=== PATIENT | female | born 1960 | race Caucasian/White ===

== ENCOUNTER 2017-03-23 10:49 | Emergency (ER) | payer OTHER ==
[~2017-03-23] VITALS: Ht 180.3 cm; Wt 100.0 kg
[2017-03-23] MEDS ORDERED: SING10TA32 PO (11:08)
[2017-03-23] MEDS ORDERED: LEVO50TA5 PO (11:08)
[2017-03-23] MEDS ORDERED: CELE50CA PO (11:08)
[2017-03-23] MEDS ORDERED: MORPHINE 4 MG/ML 1ML SYRINGE IV PRN (11:30)
[2017-03-23] MEDS ORDERED: ONDANSETRON 4MG/2ML VIAL (J2405) IV ONE (11:30)
[2017-03-23] MEDS ORDERED: LIDOCAINE 1% MDV 20ML VIAL As Ordered ONE (12:25)
--- NOTE | 2017-03-23 12:26 | REP ---
RIGHT WRIST, FOUR VIEWS: HISTORY: Trauma. There is a fracture of the distal radius with lateral and posterior displacement of the distal fracture fragment. A small calcified density is present distal to the ulna. This represents ligamentous or tendon calcification. The carpal and carpometacarpal joint spaces are normal in appearance. IMPRESSION: Fracture of the distal radius as described above. Signed by Everette Khalil MD 03/23/2017 12:31 P
[2017-03-23] MEDS ORDERED: NORCOTAB PO (13:39)
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
[2017-03-23 14:00] VITALS: BP 146/72
--- NOTE | 2017-03-23 15:03 | REP ---
RIGHT WRIST: Two views in plaster. Portably obtained. HISTORY: Post reduction. Colles fracture. FINDINGS: AP and lateral views in overlying cast material demonstrate markedly improved alignment of the distal radial fracture. Signed by Kory Liu MD 03/24/2017 10:03 A
== END 2017-03-23 14:02 | disposition home or self-care (01) ==
LOC: M ED 10:49
DX: S52.531A Colles' fracture of right radius, initial encounter for closed fracture (principal); V49.40XA Driver injured in collision with unspecified motor vehicles in traffic accident, initial encounter; Y92.410 Unspecified street and highway as the place of occurrence of the external cause; Y93.9 Activity, unspecified; Y99.8 Other external cause status; E03.9 Hypothyroidism, unspecified; Z79.899 Other long term (current) drug therapy
CPT/HCPCS: 25605; 73100; 73110; 96374; 96375; 99284; J2405

== ENCOUNTER → 2018-12-19 | Outpatient (REF) | payer OTHER ==
[~2018-12-19] MED LIST: CELE50CA PO; HYDR-3715 PO; LEVO50TA5 PO; SING10TA32 PO
== END ==
LOC: M SFHCLERA 10:34
PROVIDERS: ATTEND Physician Assistant
DX: N39.0 Urinary tract infection, site not specified (principal)
CPT/HCPCS: 81002; 87086; G0463

== ENCOUNTER → 2024-07-09 | Outpatient (REF) | payer OTHER ==
[~2024-07-09] MED LIST changes: -CELE50CA PO; +CELE50CA17 PO; +MONT-5 PO; -SING10TA32 PO
== END ==
LOC: M SFHCRHEU 14:05
PROVIDERS: ATTEND Internal Medicine
DX: I73.00 Raynaud's syndrome without gangrene (principal); M79.10 Myalgia, unspecified site

== ENCOUNTER 2024-08-14 08:51 | Day surgery (SDC) | payer OTHER ==
[~2024-08-14] VITALS: Ht 180.3 cm; Wt 102.8 kg
[~2024-08-14 08:51] MED LIST changes: +ALBU8.5H; +FLUT1BLS2 IH; +KETOROLAC 60MG 2ML VIAL As Ordered ONE; +LIDOCAINE 2% 100MG/5ML SDV (FOR ANES.) As Ordered ONE; +ONDANSETRON 4MG 2ML VIAL As Ordered ONE; +SERT50TA29 PO; +SYNT88TA2 PO; +propofoL 200 MG/20 ML VIAL As Ordered ONE
[2024-08-14 09:15] LABS: HEMATOCRIT 46.7 % (36.0-47.0); HEMOGLOBIN 15.3 g/dl (12.0-15.5); MEAN CORPUSCULAR HEMOGLOBIN 28.8 pg (27.0-33.0); MEAN CORPUSCULAR HGB CONC 32.8 g/dl (32.0-36.5); MEAN CORPUSCULAR VOLUME 87.8 fl (80.0-96.0); PLATELET COUNT, AUTOMATED 298 10^3/uL (150-450); RED BLOOD COUNT 5.32 10^6/uL (4.00-5.40)
[2024-08-14] MEDS ORDERED: LR 1,000 ML IV SCH (09:50)
[2024-08-14] MEDS: ACETAMINOPHEN 500 MG TAB PO ONE (09:55)
[2024-08-14] MEDS: SCOPOLAMINE 1MG TRANSDERMAL PATCH TOP ONE (09:56)
[2024-08-14] MEDS ORDERED: fentaNYL 100 MCG/2 ML INJECTION As Ordered ONE (10:45)
[2024-08-14] MEDS ORDERED: MIDAZOLAM INJ 2MG/2ML VIAL As Ordered ONE (10:45)
[2024-08-14] MEDS ORDERED: ACETAMINOPHEN 1000MG/100ML IV BAG As Ordered ONE (11:54)
[2024-08-14] MEDS: LIDOCAINE 1% SDV 30ML VIAL As Ordered ONE (12:15)
[2024-08-14] MEDS ORDERED: fentaNYL 100 MCG/2 ML INJECTION IV PRN (12:40)
[2024-08-14] MEDS ORDERED: MORPHINE 2 MG/ML 1ML VIAL IV PRN (12:40)
[2024-08-14] MEDS ORDERED: oxyCODONE 5MG TAB PO PRN (12:40)
[2024-08-14] MEDS ORDERED: ONDANSETRON 4MG 2ML VIAL IV PRN (12:40)
[2024-08-14] MEDS: SILVER NITRATE APPLICATOR (1 = QTY 10) As Ordered ONE (12:42)
[2024-08-14 13:41] VITALS: BP 130/62; TEMP 97.8; O2SAT 95
== END 2024-08-14 13:45 | disposition home or self-care (01) ==
LOC: M SDC 08:51
PROVIDERS: ATTEND Student in an Organized Health Care Education/Training Program
DX: N95.0 Postmenopausal bleeding (principal); N84.0 Polyp of corpus uteri; E03.9 Hypothyroidism, unspecified; J45.909 Unspecified asthma, uncomplicated; Z79.899 Other long term (current) drug therapy; Z79.890 Hormone replacement therapy; Z90.89 Acquired absence of other organs; F32.A Depression, unspecified; F41.9 Anxiety disorder, unspecified; Z88.5 Allergy status to narcotic agent
CPT/HCPCS: 36415; 58558; 85027; 86850; 86900; 86901; 88305; 93005; J0131; J1100; J1885; J2250; J2405; J3010